=== PATIENT | female | born 1955 | race Caucasian/White ===

== ENCOUNTER 2018-05-28 08:56 | Outpatient (REF) | payer BC, SELFPAY ==
[2018-05-28 12:42] LABS: HCT 40.4 % (36.0-46.0); HGB 12.8 g/dL (12.0-15.5); Mean Corp. HGB Concentration 31.7 g/dL (32.0-36.0); Mean Corpuscular Hemoglobin 27.1 pg (27.0-33.0); Mean Corpuscular Volume 85.4 fL (80-95); Platelet Count 201 x1000/uL (130-400); RBC 4.73 m/cumm (4.00-5.20); RBC Distribution Width 16.9 % (11.7-14.6); White Blood Cell Count 3.62 k/cumm (4.4-10.8)
[2018-05-28 12:53] LABS: ALT 41 U/L (12-78); AST 34 U/L (15-37); Albumin 3.7 g/dL (3.4-5.0); Alkaline Phosphatase 82 U/L (46-116); Anion Gap 8.3 mmol/L (3-11); BUN 12 mg/dL (7-18); Bilirubin, Total 0.4 mg/dL (0.2-1.0); CO2 28.7 mmol/L (21.0-32.0); CREATININE 1.06 mg/dL (0.55-1.02); Calcium 8.9 mg/dL (8.5-10.1); Chloride 106 mmol/L (98-107); Cholesterol 177 mg/dL (50-200); Estimated GFR 52.36 (mL/min/1.73m2); Glucose 114 mg/dL (70-100); HDL Cholesterol 64 mg/dL (40-60); LDL CHOLESTEROL 103 mg/dL (<100); Potassium 4.2 mmol/L (3.5-5.1); Sodium 143 mmol/L (136-145); Triglyceride 77 mg/dL (30-150)
== END 2018-05-28 09:16 ==
LOC: NCHCN 08:56
PROVIDERS: Visit Provider Family Medicine
DX: Z00.00 Encounter for general adult medical examination without abnormal findings (principal); Z13.0 Encounter for screening for diseases of the blood and blood-forming organs and certain disorders involving the immune mechanism; Z13.228 Encounter for screening for other metabolic disorders; Z13.220 Encounter for screening for lipoid disorders
CPT/HCPCS: 80053; 80061; 83721; 85027

== ENCOUNTER 2018-06-10 00:20 | Outpatient (CLI) | payer BC, SELFPAY ==
--- NOTE | 2018-06-10 12:01 | DI.MAMMO_ITS ---
SYMPTOM/DIAGNOSIS: SCREENING, Z12.31 MAMMOGRAMS: Mammograms were interpreted according to the usual protocol including computer analysis with CAD system, tomosynthesis and C view imaging. Comparison with prior examinations. Breast density A. No masses or microcalcifications are seen. There is nothing to suggest malignancy. IMPRESSION: Negative mammogram. Routine screening is recommended. Category I. MQSA ASSESSMENT OF FINDINGS: Negative. Category 1. Patient will receive a letter notifying them of these results. BI-RAD category A. The breasts are almost entirely fatty.
== END 2018-06-10 00:40 ==
PROVIDERS: PCP Family Medicine; Visit Provider Family Medicine
DX: Z12.31 Encounter for screening mammogram for malignant neoplasm of breast (principal)
CPT/HCPCS: 77063; 77067

== ENCOUNTER 2018-12-03 16:02 | Outpatient (REF) | payer BC, SELFPAY ==
[2018-12-04 06:32] LABS: CREATININE 1.09 mg/dL (0.55-1.02)
== END 2018-12-03 16:22 ==
LOC: NCHCN 16:02
PROVIDERS: PCP Family Medicine; Visit Provider Family Medicine
DX: F45.8 Other somatoform disorders (principal)
CPT/HCPCS: 82565

== ENCOUNTER 2018-12-05 00:42 | Outpatient (CLI) | payer BC, SELFPAY ==
--- NOTE | 2018-12-05 08:16 | DI.CT_ITS ---
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 No mass is identified. The salivary glands as visualized are intact. The base of the tongue, valleculae and aryepiglottic folds and larynx appear unremarkable. There is no evidence of a retropharyngeal abnormality. The larynx is intact. No vascular abnormality is identified in the neck. There is no evidence of lymphadenopathy. The thyroid gland is intact. Note is made of degenerative changes involving the cervical spine. SUMMARY: No evidence of a mass or lymphadenopathy. The soft tissues appear unremarkable. If there is any further clinical question regarding the status of this patient, then correlation with a barium swallow is suggested.
[2018-12-05] MEDS: Omnipaque 350 MG/ML 100 ML BTL IJ (08:47)
[2018-12-05] MEDS: Normal Saline Flush 10 ML SYR IVP (08:48)
== END 2018-12-05 01:02 ==
PROVIDERS: PCP Family Medicine; Visit Provider Family Medicine
DX: F45.8 Other somatoform disorders (principal); H92.09 Otalgia, unspecified ear; M47.22 Other spondylosis with radiculopathy, cervical region; K14.8 Other diseases of tongue
CPT/HCPCS: 70491; 87491; 87591; J3490

== ENCOUNTER 2019-07-03 02:12 | Outpatient (CLI) | payer BC, SELFPAY ==
[2019-07-03 09:38] LABS: ALT 35 U/L (14-59); AST 22 U/L (15-37); Albumin 3.6 g/dL (3.4-5.0); Alkaline Phosphatase 73 U/L (46-116); Anion Gap 5.4 mmol/L (3-11); BUN 19 mg/dL (7-18); Bilirubin, Total 0.4 mg/dL (0.2-1.0); CO2 30.6 mmol/L (21.0-32.0); Calcium 9.3 mg/dL (8.5-10.1); Calculated LDL 105 mg/dL; Chloride 107 mmol/L (98-107); Cholesterol 185 mg/dL (50-200); Estimated GFR 50.01 (mL/min/1.73m2); Glucose 110 mg/dL (70-100); HDL Cholesterol 68 mg/dL (40-60); Potassium 4.3 mmol/L (3.5-5.1); Sodium 143 mmol/L (136-145); Total Protein 6.8 g/dL (6.4-8.2); Triglyceride 60 mg/dL (30-150)
== END 2019-07-03 02:32 ==
PROVIDERS: PCP Family Medicine; Visit Provider Family Medicine
DX: R73.9 Hyperglycemia, unspecified (principal); I10 Essential (primary) hypertension; Z00.00 Encounter for general adult medical examination without abnormal findings; Z13.220 Encounter for screening for lipoid disorders
CPT/HCPCS: 36415; 80053; 80061

== ENCOUNTER 2019-07-14 16:44 | Outpatient (REF) | payer BC, SELFPAY ==
--- NOTE | 2019-07-14 16:15 | PAPFT_PTH ---
PATIENT: Benita Arreaga LOC: [facility] U#:[id number] AGE/SX: 64/F ROOM: RE07/14/[address]: Melanie Carrington : 1955 BED: DIS: 07/14/2019 SPEC #: [id number] RECD: 07/15/19 12:40 STATUS: NOEMI REQ #: [id number] DAVID: 07/14/19 16:[address]: Melanie Carrington DEPT: [facility] Cytology RECD BY: Peggy Ramirez Tissues: 1 - CX/ENDOCX FOR PAP SMEARS Procedures: PAP THIN PREP/UVM Screening HPV DNA PROBE Comments: [id number]
== END 2019-07-14 17:04 ==
LOC: NCHCN 16:44
PROVIDERS: PCP Family Medicine; Visit Provider Family Medicine
DX: Z12.4 Encounter for screening for malignant neoplasm of cervix (principal); Z00.00 Encounter for general adult medical examination without abnormal findings; Z01.419 Encounter for gynecological examination (general) (routine) without abnormal findings
CPT/HCPCS: 88142; 87624

== ENCOUNTER 2019-08-13 01:20 | Outpatient (CLI) | payer BC, SELFPAY ==
--- NOTE | 2019-08-13 16:19 | DI.MAMMO_ITS ---
EXAM: MG MAMMO SCREENING CLINICAL HISTORY: SCREENING Z12.31. TECHNIQUE: Full field digital CC and MLO mammographic images were obtained with 3D tomosynthesis and utilizing computer aided detection (CAD). COMPARISON: . 2009 through 2017 FINDINGS: Breast Density - Category A - Almost entirely fatty Masses/Architectural Distortion: None seen. Microcalcifications: No suspicious pleomorphic-type calcifications are seen. Skin Thickening/Nipple Retraction: None. Axilla: Unremarkable. IMPRESSION: 1. BI-RADS category 1, negative. No significant interval change with no specific features of maligna ncy noted. 2. Unless there is more urgent need, screening mammography is recommended, as per [place] [employer] guidelines. A negative radiographic report should not delay biopsy if a dominant or clinically suspicious mass is present. Up to ten percent of cancers are not identified on mammography. A negative report may reinforce clinical impression. Adenosis and dense breasts may obscure an underlying neoplasm. False positive reports average 6 to 10%. Patient will receive a letter notifying them of these results.
== END 2019-08-13 01:40 ==
PROVIDERS: PCP Family Medicine; Visit Provider Family Medicine
DX: Z12.31 Encounter for screening mammogram for malignant neoplasm of breast (principal)
CPT/HCPCS: 77063; 77067

== ENCOUNTER 2020-03-30 07:23 | Outpatient (CLI) | payer BC, SELFPAY ==
[2020-04-01 23:57] LABS: COVID-19 RT-PCR Result NEGATIVE (Negative)
== END 2020-03-30 07:43 ==
PROVIDERS: PCP Family Medicine; Visit Provider Internal Medicine Gastroenterology
DX: Z11.59 Encounter for screening for other viral diseases (principal)
CPT/HCPCS: U0003

== ENCOUNTER 2020-08-02 16:22 | Outpatient (REF) | payer BC, SELFPAY ==
[2020-08-04 16:51] LABS: Patient Race White; SARS-CoV-2 RNA Undetected (Undetected); SARS-CoV-2 Specimen Source Nasal
== END 2020-08-02 16:42 ==
LOC: NCHCN 16:22
PROVIDERS: PCP Family Medicine; Visit Provider Family Medicine
DX: Z20.828 Contact with and (suspected) exposure to other viral communicable diseases (principal)
CPT/HCPCS: U0003

== ENCOUNTER 2020-08-23 00:21 | Outpatient (CLI) | payer BC, SELFPAY ==
--- NOTE | 2020-08-23 16:17 | DI.MAMMO_ITS ---
EXAM: MG MAMMO SCREENING CLINICAL HISTORY: SCREENING,Z12.31 TECHNIQUE: Bilateral full field digital CC and MLO mammographic images were obtained with 3D tomosyn thesis and utilizing computer aided detection (CAD). COMPARISON: Available for comparison. FINDINGS: Masses/Architectural Distortion: None seen. Microcalcifications: No suspicious pleomorphic-type are seen. Skin Thickening/Nipple Retraction: None. IMPRESSION: 1. No significant interval change with no specific features of malignancy noted. 2. Unless there is more urgent need, screening mammography is recommended, as per [employer] [employer] guidelines. BI-RADS Category 1 - Negative Breast Density - Category A - Almost entirely fatty Breast density category C or D implies that the patient has dense breast tissue. Dense breast tissue is very common and is not abnormal but dense breast tissue can make it harder to find cancer on a ma mmogram. Also, dense breast tissue may increase their breast cancer risk. This information about the result of the mammogram report was provided to the patient to raise their awareness. Use this report when you speak with the patient about their risks for breast cancer, which includes their family hist ory. At that time, you may recommend for more screening tests (Ultrasound or MRI) as they might be us eful based on their risk. A negative radiographic report should not delay biopsy if a dominant or clinically suspicious mass is present. Up to ten percent of cancers are not identified on mammography. A negative report may reinforce clinical impression. Adenosis and dense breasts may obscure an underlying neoplasm. False positive reports average 6 to 10%. Patient will receive a letter notifying them of these results.
== END 2020-08-23 00:41 ==
PROVIDERS: PCP Family Medicine; Visit Provider Family Medicine
DX: Z12.31 Encounter for screening mammogram for malignant neoplasm of breast (principal)
CPT/HCPCS: 77063; 77067

== ENCOUNTER 2020-11-09 13:17 | Outpatient (CLI) | payer BC, SELFPAY ==
[2020-11-09 15:34] LABS: HCT 40.9 % (36.0-46.0); HGB 13.1 g/dL (11.2-15.7); MCH 29.6 pg (27.0-33.0); MCV 92.5 fL (80-95); MPV 11.2 fL (8.0-11.0); Platelet Count 210 10^3/uL (130-400); RBC 4.42 10^6/uL (3.93-5.22); RDW 13.2 % (11.7-14.6); RDW-SD 45.1 fL; WBC 4.91 10^3/uL (4.4-10.8)
[2020-11-09 16:49] LABS: Iron 65 ug/dL (50-170)
[2020-11-09 17:11] LABS: ALT 31 U/L (14-59); AST 21 U/L (15-37); Albumin 3.7 g/dL (3.4-5.0); Alkaline Phosphatase 77 U/L (46-116); Bilirubin, Total 0.3 mg/dL (0.2-1.0); CREATININE 0.9 mg/dL (0.55-1.02); Ferritin 21 ng/mL (8-252); TSH 1.57 uIU/mL (0.36-3.74); Total Protein 6.8 g/dL (6.4-8.2); Vitamin B12 552 pg/mL (193-986)
[2020-11-09 17:55] LABS: Bilirubin, Direct 0.1 mg/dL (0.0-0.2)
[2020-11-11 04:51] LABS: Vitamin D 25 Total 53.7 ng/ml (30-100)
== END 2020-11-09 13:18 | disposition home or self-care (01) ==
LOC: LBO 13:20
PROVIDERS: PCP Family Medicine; Visit Provider Physician Assistant
DX: E66.01 Morbid (severe) obesity due to excess calories (principal); Z68.39 Body mass index [BMI] 39.0-39.9, adult
CPT/HCPCS: 36415; 80076; 82306; 85027; 82565; 82607; 82728; 83540; 84443

== ENCOUNTER 2021-02-18 02:30 | Outpatient (CLI) | payer BC, SELFPAY ==
[2021-02-18 12:19] LABS: Source Nasal/Nares
[2021-02-18 15:24] LABS: COVID-19 PCR Negative (Negative)
== END 2021-02-18 02:31 | disposition home or self-care (01) ==
LOC: LBO 02:30
PROVIDERS: PCP Family Medicine; Visit Provider Surgery
DX: Z20.822 Contact with and (suspected) exposure to COVID-19 (principal); Z01.818 Encounter for other preprocedural examination
CPT/HCPCS: 87635

== ENCOUNTER 2021-05-20 01:27 | Outpatient (CLI) | payer BC, SELFPAY ==
[2021-05-20 07:31] LABS: HCT 39.9 % (36.0-46.0); HGB 12.7 g/dL (11.2-15.7); MCH 29.5 pg (27.0-33.0); MCHC 31.8 % (32.0-36.0); MCV 92.8 fL (80-95); MPV 11.1 fL (8.0-11.0); Platelet Count 174 10^3/uL (130-400); RDW-SD 44.3 fL; WBC 4.05 10^3/uL (4.4-10.8)
[2021-05-20 09:26] LABS: Iron 93 ug/dL (50-170)
[2021-05-20 09:54] LABS: CREATININE 1.1 mg/dL (0.55-1.02); Calcium 9.4 mg/dL (8.5-10.1); Estimated GFR 49.69 (mL/min/1.73m2); Ferritin 24 ng/mL (8-252); Vitamin B12 618 pg/mL (193-986)
[2021-05-23 02:39] LABS: Vitamin D 25 Total 48.5 ng/mL (30-100)
[2021-05-23 09:11] LABS: Parathyroid Hormone,Intact 29 pg/mL (19-88)
[2021-05-24 18:56] LABS: Thiamine (Vitamin B1), WB 199 nmol/L (70-180)
== END 2021-05-20 01:28 | disposition home or self-care (01) ==
LOC: LBO 01:29
PROVIDERS: PCP Family Medicine; Visit Provider Surgery
DX: K91.2 Postsurgical malabsorption, not elsewhere classified (principal); Z98.84 Bariatric surgery status
CPT/HCPCS: 36415; 82306; 85027; 82310; 82565; 82607; 82728; 83540; 83970; 84425

== ENCOUNTER → 2022-01-26 02:03 | Outpatient (CLI) | payer BC, SELFPAY ==
--- NOTE | 2022-01-26 15:00 | DI.DEXA_ITS ---
Exam(s) XR DEXA BONE DENSITY W/WO MÓNICA EXAM: XR DEXA BONE DENSITY W/WO MÓNICA CLINICAL HISTORY: MENOPAUSE, Z78.0 TECHNIQUE: COMPARISON: No exams were available for comparison FINDINGS: Lateral Spine Image: Unremarkable. No compression deformities identified. Left hip: Total T-Score: -0.3 Total Z-Score: 1.0 T- and Z-scores: Overall, this is within normal limits. Lumbar Spine: Total T-Score: -1.0 Total Z-Score: 0.9 T- and Z-scores: Within normal limits. IMPRESSION: No evidence of osteoporosis.
--- NOTE | 2022-01-26 15:30 | DI.MAMMO_ITS ---
Exam(s) MAMMO SCREENING EXAM: MAMMO SCREENING CLINICAL HISTORY: SCREENING, Z12.31 TECHNIQUE: Bilateral full field digital CC and MLO mammographic images were obtained with 3D tomosyn thesis and utilizing computer aided detection (CAD). COMPARISON: Available for comparison. FINDINGS: Masses/Architectural Distortion: None seen. Microcalcifications: No suspicious pleomorphic-type are seen. Skin Thickening/Nipple Retraction: None. IMPRESSION: 1. No significant interval change with no specific features of malignancy noted. 2. Unless there is more urgent need, screening mammography is recommended, as per [place] [employer] guidelines. BI-RADS Category 1 - Negative Breast Density - Category B - Scattered areas of fibroglandular density Breast density category C or D implies that the patient has dense breast tissue. Dense breast tissue is very common and is not abnormal but dense breast tissue can make it harder to find cancer on a ma mmogram. Also, dense breast tissue may increase their breast cancer risk. This information about the result of the mammogram report was provided to the patient to raise their awareness. Use this report when you speak with the patient about their risks for breast cancer, which includes their family hist ory. At that time, you may recommend for more screening tests (Ultrasound or MRI) as they might be us eful based on their risk. A negative radiographic report should not delay biopsy if a dominant or clinically suspicious mass is present. Up to ten percent of cancers are not identified on mammography. A negative report may reinforce clinical impression. Adenosis and dense breasts may obscure an underlying neoplasm. False positive reports average 6 to 10%. Patient will receive a letter notifying them of these results.
== END ==
PROVIDERS: PCP Family Medicine; Visit Provider Family Medicine
DX: Z12.31 Encounter for screening mammogram for malignant neoplasm of breast (principal); Z13.820 Encounter for screening for osteoporosis; Z78.0 Asymptomatic menopausal state
CPT/HCPCS: 77063; 77067; 77080

== ENCOUNTER → 2022-11-27 14:28 | Outpatient (BNVA) | payer MEDICARE, SELFPAY | PROVIDERS: PCP Family Medicine; Referring Provider Family Medicine; Visit Provider Student in an Organized Health Care Education/Training Program | DX: M65.342 Trigger finger, left ring finger (principal) | CPT/HCPCS: 99202 ==

== ENCOUNTER 2023-01-03 11:56 | Day surgery (SDC) | payer MEDICARE, SELFPAY ==
--- NOTE | 2023-01-03 11:57 | W.PM.DSUDISC ---
Date of service: 01/03/23 Time of Service: 11:57 Discharge Plan Disposition Condition: Good Discharge Details Reason For Visit: LRF Trigger Release Attending Provider: Abdiel Wilson Primary Care Provider: Melanie Carrington Home Meds and New Rx's Prescriptions: New acetaminophen 500 mg tablet 1,000 mg PO TID Qty: 90 0RF ibuprofen 600 mg tablet 600 mg PO TID PRN (Reason: pain) Qty: 90 0RF Continued fluticasone propionate 16 GM spray,suspension 50 mcg NS PRN citalopram 20 mg tablet 30 mg PO DAILY omeprazole 40 mg capsule,delayed release(DR/EC) 40 mg PO DAILY cyanocobalamin (vitamin B-12) 1,000 mcg capsule 1,000 mcg PO DAILY multivitamin [Once Daily] 1 EACH tablet 1 ea PO DAILY Acidophilus 1 EACH tablet,chewable 1 ea PO DAILY cholecalciferol (vitamin D3) 1,000 UNIT tablet 1 tab PO DAILY biotin [Hard Nails] 2,500 MCG capsule 7,500 mcg PO DAILY omega 4-gga-aog-fish oil 1 EACH capsule 1 ea PO DAILY Discharge Instructions Stand Alone Forms: Katie Patel Finger Release Referrals: Abdiel Wilson MD [ [facility] STAFF PHYSICIAN] - Activity:: Activity as Tolerated Remove Dressings/Wound Care:: 48 hours Shower/Bathe:: 48 hours Activity:: Activity as Tolerated Diet:: As Tolerated DS: Diagnosis Discharge Diagnosis (1) Trigger finger, left ring finger: Status: Acute
[2023-01-03 12:29] VITALS: BP 133/83; PULSE 69; RESP 15; TEMP 36.5; O2SAT 99
[2023-01-03] MEDS: Lidocaine 1% Pres-Free W/EPI 1/200,000 10 ML VIAL (13:43)
[2023-01-03] MEDS: Sodium Bicarbonate 50 MEQ/50 ML VIAL (13:43)
[2023-01-03 14:02] VITALS: BP 144/79; PULSE 65; RESP 16; TEMP 36.6; O2SAT 100
--- NOTE | 2023-01-03 14:08 | W.PM.OP ---
Date of service: 01/03/23 Time of Service: 14:00 Operative Note Operative Note DATE OF PROCEDURE: 01/03/23 PRE-OP DIAGNOSIS: Left Ring Finger Trigger Finger POST-OP DIAGNOSIS: same PROCEDURE: Trigger Finger Release - Left Ring Finger SURGEON: Abdiel Wilson ANESTHESIA TYPE: Local By Surgeon Refer to Anesthesia Record ESTIMATED BLOOD LOSS: 0 PATHOLOGY: none sent COMPLICATIONS: None Patient was transported to: same day Patient's condition: stable Indications: I have seen Benita Spencer in clinic for symptoms of a trigger finger. The catching, clicking, locking, and pain limited function. The diagnosis of trigger finger was evident. The symptoms had not responded to conservative measures. I discussed trigger finger release with the patient. I reviewed the risks of the procedure to include, but not limited to, bleeding, infection, pain, stiffness, incomplete release, damage to nerves or vessels, continued catching, recurrence. Despite these risks, the patient elected to proceed. Findings: There was a tightened A1 jillian which was released. The flexor tendons were inspected and the patient was able to move the finger without any catching, clicking, or locking. Procedure Description: Benita Spencer was greeted in the preoperative holding area where the correct side was identified and marked. The consent was reviewed with the patient and signed. All questions were answered. She was taken back to the operating room. The patient was placed into the supine position on the operating room table with the left arm on an arm board. All bony prominences were well padded. No prophylactic antibiotics were administered since this was a clean, elective hand surgical case. The left arm was then prepped with Chloraprep and draped in a standard fashion with stockinette and extremity drape. A timeout to confirm correct identity, side and site, procedure, allergies, anesthesia, and medical concerns was performed. The surgical site was marked as a longitudinal incision directly over the A1 jillian of the involved digit. This was confirmed with palpation during finger flexion. This area, overlying the metacarpal head, was then anesthetized with 1% Lidocaine. The patient tolerated this well and once the anesthetic had setup, the procedure began. A longitudinal incision was made through skin only, approximately 1cm. The deep tissues were dissected bluntly. Once the A1 jillian and flexor tendons were identified the soft tissue including neurovascular structures were retracted medially and laterally. There were no crossing structures over the A1 jillian. The proximal edge of the jillian was identified and the jillian was incised with tenotomy scissors. There was a release of the tendons once this was fully released. The tendons were then removed from the wound and inspected. The tendons were then returned and the patient was asked to move the finger into deep flexion and back to extension. There was no recreation of the pre-operative symptoms. The hand was then once more inspected for any A0 jillian or area of possible constriction. The wound was then irrigated and the skin was closed with a 4-0 Nylon. This was dressed with gauze and a Conform dressing. The patient tolerated the procedure well and was returned to the Same Day Surgery area in a stable condition suffering no known complication.
== END 2023-01-03 14:35 | disposition home or self-care (01) ==
PROVIDERS: PCP Family Medicine; Visit Provider Student in an Organized Health Care Education/Training Program
PROC: (CPT 26055; principal; 2023-01-03 15:00)
DX: M65.342 Trigger finger, left ring finger (principal)
CPT/HCPCS: 26055

== ENCOUNTER → 2023-01-11 14:31 | Outpatient (BNVA) | payer MEDICARE, SELFPAY | PROVIDERS: PCP Family Medicine; Referring Provider Family Medicine; Visit Provider Physician Assistant | DX: Z47.89 Encounter for other orthopedic aftercare (principal); M65.342 Trigger finger, left ring finger ==

== ENCOUNTER → 2023-02-20 10:30 | Outpatient (BNVA) | payer MEDICARE, SELFPAY | PROVIDERS: PCP Family Medicine; Referring Provider Family Medicine; Visit Provider Surgery | DX: K22.70 Barrett's esophagus without dysplasia (principal) | CPT/HCPCS: 99202; 99213 ==

== ENCOUNTER 2023-02-28 07:50 | Day surgery (SDC) | payer MEDICARE, SELFPAY ==
--- NOTE | 2023-02-28 06:34 | W.PM.PROGNOT ---
Date of Service Date of service: 02/28/23 Time of Service: 08:41 Assessment and Plan Assessment and plan (1) Barretts esophagus: Assessment and plan: Mindi Spencer is here to discuss another upper endoscopy.? We went over the pathophysiology of reflux again.? We reviewed lifestyle changes like weight loss which she is starting to work on again, not eating within 2 hours of going to bed and small healthy meals throughout the day instead of 2-3 big meals a day.? I reviewed the risks, benefits and complications of the procedure.? Complications include but are not to bleeding, infection, aspiration, injury to the esophagus stomach or duodenum necessitating further surgery and hospitalization.? Injury to the uvula with development of a severe sore throat.? Patient's questions were entertained and answered to her satisfaction.? She had a good understanding of the risks and complications and wished to proceed.? No guarantees were given or implied. (2) GERD (gastroesophageal reflux disease): Subjective Subjective Interval history since last seen: I saw Mindi Spencer in same-day surgery today prior to her procedure. She does not have any concerns or new symptoms. She has not had any new heart rate issues chest pain or shortness of breath. She did go to dermatology yesterday and had all a bunch of lesions frozen. One of the scabs came off this morning and is a little raw area next to her nose on the left side. Will place a small Band-Aid on that so that does not get rubbed with the oxygen tubing. No other concerns or issues this morning. Exam Const General: comfortable and no acute distress Nutritional Appearance: overweight Orientation: alert and oriented x3 HENMT Head: normocephalic and atraumatic Resp Effort & Inspection: normal respiratory effort Auscultation: clear to auscultation bilaterally Time Spent with Patient Time Spent with Patient: <25 minutes Time was spent: counseling the patient
--- NOTE | 2023-02-28 06:35 | W.PM.ENDDOP ---
Date of service: 02/28/23 Time of Service: 09:18 Endoscopy Report DATE OF PROCEDURE: 02/28/23 PRE-OP DIAGNOSIS: Hx of Roman's. GERD POST-OP DIAGNOSIS: same PROCEDURE: EGD with biopsies SURGEON: Lauren Mckeon ANESTHESIA TYPE: General:No Airway ESTIMATED BLOOD LOSS: 3 PATHOLOGY: other (Bx of GE junction) COMPLICATIONS: None DISPOSITION: same day INDICATIONS: Mindi Specner is here to discuss another upper endoscopy.? We went over the pathophysiology of reflux.? We reviewed lifestyle changes like weight loss which she is starting to work on again, not eating within 2 hours of going to bed and small healthy meals throughout the day instead of 2-3 big meals a day.? I reviewed the risks, benefits and complications of the procedure.? Complications include but are not to bleeding, infection, aspiration, injury to the esophagus stomach or duodenum necessitating further surgery and hospitalization.? Injury to the uvula with development of a severe sore throat.? Patient's questions were entertained and answered to her satisfaction.? She had a good understanding of the risks and complications and wished to proceed.? No guarantees were given or implied. FINDINGS: mild gastric inflammation benign fundic gland polyps mild inflammation at the GE junction PROCEDURE DESCRIPTION: After informed consent was obtained the patient was take to the procedure room and placed in a supine position. Monitors were applied and a time out was done. The patients name, date of , procedure type, allergies to medications and metal in their body was reviewed. A bite block was placed and the patient was sedated. Once sedated and comfortable the gastroscope was advanced through the oropharynx which was grossly normal into the esophagus. The proximal and mid-esophagus were normal. In the distal esophagus there was mild inflammation noted. The scope was advanced into the stomach and through the pylorus into the 3rd portion of the duodenum. The duodenum was noted to be normal. The scope was retracted back into the stomach. There was some mild inflammation and some benign fundic gland polyps. There were no ulcers. There was a small 3 cm sliding hiatal hernia noted. The scope was retracted back into the esophagus and biopsies were done of the GE junction to rule out Roman's. The Z line was regular. The GE junction was at 35 cm. The scope was removed and the patient was woken up and taken back to [facility] in stable condition. Follow up: as needed. Continue with the current antacid
--- NOTE | 2023-02-28 06:36 | PDOC.DSDIS_ITS ---
Date of service: 02/28/23 Time of Service: 10:01 Discharge Plan Disposition Patient Disposition: Home Condition: Stable Discharge Details Reason For Visit: EGD Attending Provider: Lauren Mckeon Primary Care Provider: Melanie Carrington Home Meds and New Rx's Prescriptions: Continued calcium carbonate 260 mg calcium (650 mg) tablet,chewable 260 mg PO DAILY fluticasone propionate 16 GM spray,suspension 50 mcg NS PRN citalopram 20 mg tablet 30 mg PO DAILY omeprazole 40 mg capsule,delayed release(DR/EC) 40 mg PO HS cyanocobalamin (vitamin B-12) 1,000 mcg capsule 1,000 mcg PO DAILY multivitamin [Once Daily] 1 EACH tablet 1 ea PO DAILY ibuprofen 200 mg tablet 400 mg PO DIRECTED PRN Discharge Instructions Instructions: Hiatal Hernia (DC), Gastric Polyps (DC) Additional Instructions: Findings: mild inflammation of the stomach a few benign polyps in the stomach mild inflammation at the junction of the esophagus and stomach Follow up: depends on pathology results Medications: please continue on Omeprazole 40 mg daily Please call if you develop: fevers >101.5 Nausea or Vomiting Abdominal pain that is not transient Rectal bleeding that is more then a tbsp A hard abdomen and inability to pass gas DAY SURGERY UNIT POST ENDOSCOPY INSTRUCTIONS Instructions for everyone who is given Anesthesia: For your safety, please do the following for the next 24 Hours: a. Do not drive or operate dangerous equipment b. Do not drink alcohol beverages or use any recreational drugs for the first 24 hours or while taking pain medications. The medications in your body may have a reaction that can be dangerous. c. Do not make any important decisions or sign any important papers 1. Generally there are no restrictions on your activity after a day or so has gone by, but you may feel a bit fatigued for a few days. 2. After you arrive home you may have a light meal and return to a normal diet as you can tolerate it without feeling sick to your stomach. 3. After surgery, you may feel pain or discomfort. This should be only transient, but if it persists please contact your doctor. 4. If there are any questions regarding the findings of your procedure, please feel free to contact your doctor. 6. If you are unable to contact your doctor with a problem, contact the hospital at [phone]. 7. Continue all your regular medications unless directed otherwise. I understand the above instructions and have no questions. Signature of Patient or Responsible Adult Escort Date/Time Name of Responsible Adult Escort Signature of Nurse Date/Time Activity:: Activity as Tolerated Diet:: As Tolerated Discharge Orders Discharge Orders: Discharge Order (Routine); Ordered 02/28/23 Ordered By: Lauren Mckeon DS: Diagnosis Discharge Diagnosis (1) Barretts esophagus: Asessment and Plan: Patient is seen and examined after their endoscopy. Patient does not have a sore throat. They have been able to tolerate liquids. They do not have any Nausea or Vomiting. They are not having any chest pain or shortness of breath. They have been able to pass gas and are not having any abdominal pain or distention. they have not vomited any blood. The vital signs have been stable- see nursing notes. We discussed findings on their endoscopy We reviewed the importance of lifestyle modifications- see diet recommendations We reviewed any new medications that the patient may be prescribed- see medicine reconciliation. Patient will either be sent a letter with the biopsy results or follow up in the office- see discharge instructions Patient was given explicit instructions for emergency follow up post endoscopy- see discharge instructions Patient verbalized understanding and was discharged in stable and satisfactory condition. See nursing notes. (2) GERD (gastroesophageal reflux disease):
[2023-02-28 08:29] VITALS: BP 123/78; PULSE 65; RESP 18; TEMP 36.4; O2SAT 97
--- NOTE | 2023-02-28 08:39 | ANES.PREOP_ITS ---
General Info Date of Service Date Performed: 02/28/23 Height: 5 ft 2 in Weight: 95.3 kg Body Mass Index (BMI): 38.4 Surgical Procedure: Operation Date: 02/28/23 09:20 Proposed Procedure Side Surgeon p Gastroscopy Lauren Mckeon MD Actual Procedure Side Surgeon p Gastroscopy with biopsies Not Applicable Lauren Mckeon MD Pre-Op Diagnosis Post-Op Diagnosis EGD Meds Allergies and Home Medications Allergies Allergy/AdvReac Type Severity Reaction Status Date / Time amoxicillin Allergy Intermediate ears Unverified 02/28/23 08:19 closed up and trouble breathing codeine AdvReac Intermediate Migraine Unverified 02/28/23 08:19 Home Medication Medication Instructions Recorded fluticasone propionate 50 50 mcg NS PRN 06/14/16 mcg/actuation nasal spray,suspension multivitamin (Once Daily tablet) 1 ea PO DAILY 09/27/16 citalopram 20 mg tablet 30 mg PO DAILY 10/03/22 omeprazole 40 mg capsule,delayed 40 mg PO HS 10/03/22 release cyanocobalamin (vitamin B-12) 1,000 mcg PO DAILY 12/21/22 1,000 mcg capsule calcium carbonate 260 mg calcium 260 mg PO DAILY 02/20/23 (650 mg) chewable tablet ibuprofen 200 mg tablet 400 mg PO DIRECTED PRN 02/20/23 Current Visit Medications: Current Medications Generic Name Dose Route Start Last Admin Trade Name Freq PRN Reason Stop Dose Admin Ringer's Solution 1,000 mls @ 80 mls/hr 02/28/23 06:00 IV 03/29/23 23:59 INFUSION [facility] IV Miscellaneous Supplies 1 each 02/28/23 06:00 Iv Access IV 03/29/23 23:59 DIRECTED KASSIDY Ondansetron HCl 4 mg 02/28/23 06:37 Ondansetron 4 Mg/2 Ml Vial IVP 03/30/23 06:36 Q4H PRN PRN Nausea / Vomiting Sodium Chloride 0 ml 02/28/23 06:00 Normal Saline Flush 10 Ml Syr IV 03/29/23 23:59 PRN PRN Sodium Chloride 0 ml 02/28/23 06:00 Normal Saline 10 Ml Vial IJ 03/29/23 23:59 DIRECTED PRN Sterile Water 0 ml 02/28/23 06:00 Water,Injection,Sterile 10 Ml Vial IJ 03/29/23 23:59 DIRECTED PRN PFSH Active Problems Active Problems: Problem Status Onset Code Hypertension I10 Prediabetes R73.03 ABIGAIL (obstructive sleep apnea) G47.33 Stress due to illness of family member Z63.79 Medical History Medical History (Updated 02/28/23 @ 08:26 by Marisol Peña) Barretts esophagus Dysthymia GERD (gastroesophageal reflux disease) Hiatal hernia History of smoking IBS (irritable bowel syndrome) Obesity Seborrheic keratosis Medical History Comments:: PONV, 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 Surgical History Surgical History section 1982 History of esophagogastroduodenoscopy (EGD) (~04/02/20) Per referral done at [facility] History of fasciotomy L palm Hx of colonoscopy Hx of dilation and curettage S/P laparoscopic sleeve gastrectomy Trigger finger, left ring finger S/P Release: 01/03/2023 Tobacco Smoking/Tobacco Use Status: Former Tobacco Use Alcohol Alcohol Intake: current Alcohol intake frequency: a few times a week Alcohol type: hard liquor Substance Use Substance use: Never Substance use type: does not use Details: alcohol: t-5, one drink Vital Signs and Lab Results Vital Signs Most Recent Vital Signs in EMR: Most Recent Vital Signs Temp Pulse Resp BP Pulse Ox 36.4 C L 65 18 123/78 97 02/28/23 08:29 02/28/23 08:29 02/28/23 08:29 02/28/23 08:29 02/28/23 08:29 Lab Results Blood Type / Crossmatch: No Data to Display Complete Blood Count: No Data to Display Complete Metabolic Panel: No Data to Display Liver Function Panel: No Data to Display Coagulation Panel: No Data to Display Cardiac Panel: No Data to Display Arterial Blood Gas: No Data to Display Venous Blood Gas: No Data to Display Pancreas Panel: No Data to Display Thyroid Panel: No Data to Display Infectious Disease: No Data to Display Blood Cultures: No Data to Display Toxicology Panel: No Data to Display Anesthesia Assessment and Plan Anesthesia History Personal History: No History of Anesthesia Complications Family History: No Family History of Anesthesia Complications Exercise Tolerance Exercise Tolerance: Metabolic Equivalents>4 Pertinent Negatives Pertinent Negatives: No Major Cardiovascular Symptoms or Complaints and No Major Pulmonary Symptoms or Complaints Cardiac & Pulmonary Exam Cardiac Exam: Normal S1/S2 Heart Sounds Pulmonary Exam: Clear Bilateral Breath Sounds Implantable Cardiac Device Does patient have a Pacemaker or an ICD?: No Airway Exam Known Difficult Airway: No Mallampati Class: 2 Mouth Opening: Normal (> 3cm) Thyromental Distance: Greater than 3 cm Neck Range of Motion: Full ROM Neck Circumference: Normal Teeth Condition: Normal Dentition ASA Classification ASA Score: ASA 2 Emergency Case?: No NPO Status NPO Status: NPO Clears >2 hours, Solids >8 hours Anesthesia Plan Resuscitation Status: Full Code Anesthesia Technique: General Anesthesia Airway Planned: Natural Airway Monitors Used: Standard Monitors
[2023-02-28 08:41] VITALS: BMI 38.4
[2023-02-28] MEDS: Lactated Ringers 1,000 ML 80 ML IV (08:49)
--- NOTE | 2023-02-28 09:08 | ESO_PTH ---
PATIENT: Benita Arreaga LOC: [facility] U#:[id number] AGE/SX: 68/F ROOM: RE02/28/[address]: Lauren Mckeon MD : 1955 BED: DIS: 02/28/2023 SPEC #: [id number] RECD: 02/28/23 12:32 STATUS: NOEMI MCKEON #: [id number] DAVID: 02/28/23 09:[address]: Lauren Mckeon DEPT: Surgical Specimen RECD BY: Peggy Ramirez ENTERED: 02/28/23 12:34 SP TYPE: Eso OT DR: Melanie Carrington Tissues: 1 - ESOPHAGUS BIOPSY Procedures: GROSS AND MICRO LEVEL 4 Comments: [id number]
[2023-02-28 09:23] VITALS: BP 102/66; PULSE 63; RESP 18; TEMP 36.3; O2SAT 94
[2023-02-28 10:00] VITALS: BP 115/78; PULSE 58; RESP 16; TEMP 36.1; O2SAT 99
--- NOTE | 2023-02-28 11:44 | W.ANESPOSTOP ---
Postoperative Evaluation Date, Time and Location Date Performed: 02/28/23 Time Performed: 09:30 Patient Location: Day Surgery Unit Vital Signs Most Recent Imported Vital Signs: Most Recent Vital Signs Temp Pulse Resp BP Pulse Ox 36.1 C L 58 L 16 115/78 99 02/28/23 10:00 02/28/23 10:00 02/28/23 10:00 02/28/23 10:00 02/28/23 10:00 Pain Score Most Recent Pain Score: Most Recent Pain Score Pain Level 0 02/28/23 10:00 Assessment Mental Status: Awake (Alert & Oriented to Patient Baseline) Airway and Respiratory Function: Patent airway with normal (patient baseline) respiratory exam Cardiovascular Function: Hemodynamically Stable Hydration Status: Adequately Hydrated Nausea & Vomiting: No Nausea or Vomiting Pain: Pt. Denies Any Pain Peripheral Nerve Block: Patient did not receive a nerve block
== END 2023-02-28 10:21 | disposition home or self-care (01) ==
LOC: SUR 07:51
PROVIDERS: PCP Family Medicine; Visit Provider Surgery
PROC: 0DJ68ZZ Inspection of Stomach, Via Natural or Artificial Opening Endoscopic (ICD-10-PCS; CPT 43235; principal; 2023-02-28 09:15)
DX: K21.9 Gastro-esophageal reflux disease without esophagitis (principal); Z87.19 Personal history of other diseases of the digestive system; K31.7 Polyp of stomach and duodenum; K44.9 Diaphragmatic hernia without obstruction or gangrene
CPT/HCPCS: 43239; 88305; J2001; J2704

== ENCOUNTER 2023-03-27 14:49 | Outpatient (REF) | payer MEDICARE, SELFPAY ==
[2023-03-27 14:19] LABS: HCT 38.7 % (36.0-46.0); HGB 12.5 g/dL (11.2-15.7); MCH 29.8 pg (27.0-33.0); MCHC 32.3 % (32.0-36.0); MCV 92 fL (80-95); MPV 10.9 fL (8.0-11.0); Platelet Count 225 10^3/uL (130-400); RDW 13.4 % (11.7-14.6); RDW-SD 45.6 fL; WBC 4.33 10^3/uL (4.4-10.8)
[2023-03-27 14:28] LABS: ALT 28 U/L (14-59); AST 22 U/L (15-37); Albumin 3.4 g/dL (3.4-5.0); Alkaline Phosphatase 88 U/L (46-116); Anion Gap 6.4 mmol/L (3-11); BUN 16 mg/dL (7-18); Bilirubin, Total 0.4 mg/dL (0.2-1.0); CO2 29.6 mmol/L (21.0-32.0); CREATININE 1.1 mg/dL (0.55-1.02); Calcium 9.1 mg/dL (8.5-10.1); Calculated LDL 122 mg/dL (<100); Chloride 107 mmol/L (98-107); Cholesterol 211 mg/dL (<200); Estimated GFR 54.73 (mL/min/1.73m2); Glucose 106 mg/dL (74-106); HDL Cholesterol 69 mg/dL (40-60); Potassium 4.3 mmol/L (3.5-5.1); Sodium 143 mmol/L (136-145); Total Protein 6.2 g/dL (6.4-8.2); Triglyceride 101 mg/dL (<150)
[2023-03-27 16:04] LABS: Hemoglobin A1C 5.6 % (<5.7)
== END 2023-03-27 14:50 | disposition home or self-care (01) ==
LOC: NCHCN 14:49
PROVIDERS: PCP Family Medicine; Visit Provider Family Medicine
DX: I10 Essential (primary) hypertension (principal); R73.03 Prediabetes; Z00.00 Encounter for general adult medical examination without abnormal findings; E66.9 Obesity, unspecified
CPT/HCPCS: 80053; 80061; 85027; 83036

== ENCOUNTER → 2023-04-18 01:01 | Outpatient (CLI) | payer MEDICARE, SELFPAY ==
--- NOTE | 2023-04-18 | DI.MAMMO_ITS ---
Exam(s) MAMMO SCREENING EXAM: MAMMO SCREENING CLINICAL HISTORY: SCREENING MAMMO FOR BREAST CANCER Z12.39 PREVENTATIVE Z00.00 TECHNIQUE: Mammograms were interpreted according to the usual protocol including computer analysis w [employer] CAD system, tomosynthesis and C-view imaging. COMPARISON: [id number] FINDINGS: The breasts are composed of mainly fatty density , Breast Density category A. No suspicious masses or suspicious microcalcifications are seen. No skin thickening or abnormal axillary lymph nodes are seen. There has been no significant change from prior exams. IMPRESSION: BI-RADS Category 1, Negative mammogram Yearly screening mammography is recommended. Breast Density - Category A, fatty density. A negative radiographic report should not delay biopsy if a dominant or clinically suspicious mass is present. Up to ten percent of cancers are not identified on mammography. A negative report may reinforce clinical impression. Adenosis and dense breasts may obscure an underlying neoplasm. False positive reports average 6 to 10%. Patient will receive a letter notifying them of these results.
== END ==
PROVIDERS: PCP Family Medicine; Visit Provider Family Medicine
DX: Z12.31 Encounter for screening mammogram for malignant neoplasm of breast (principal)
CPT/HCPCS: 77063; 77067

== ENCOUNTER 2024-03-27 13:16 | Outpatient (REF) | payer MEDICARE, SELFPAY ==
[2024-03-27 15:00] LABS: HGB 14.2 g/dL (11.2-15.7); MCH 30.5 pg (27.0-33.0); MCV 93 fL (80-95); MPV 11.9 fL (8.0-11.0); Platelet Count 200 10^3/uL (130-400); RBC 4.65 10^6/uL (3.93-5.22); RDW 13.3 % (11.7-14.6); RDW-SD 45.5 fL; WBC 4.68 10^3/uL (4.4-10.8)
[2024-03-27 15:40] LABS: ALT 33 U/L (14-59); AST 18 U/L (15-37); Albumin 3.6 g/dL (3.4-5.0); Alkaline Phosphatase 92 U/L (46-116); BUN 20 mg/dL (7-18); Bilirubin, Total 0.46 mg/dL (0.2-1.0); CREATININE 1.1 mg/dL (0.55-1.02); Calcium 9.8 mg/dL (8.5-10.1); Calculated LDL 115 mg/dL (<100); Chloride 105 mmol/L (98-107); Cholesterol 200 mg/dL (<200); Estimated GFR 54.39 (mL/min/1.73m2); Glucose 106 mg/dL (74-106); HDL Cholesterol 73 mg/dL (40-60); Potassium 4.8 mmol/L (3.5-5.1); Sodium 143 mmol/L (136-145); Total Protein 6.5 g/dL (6.4-8.2); Triglyceride 64 mg/dL (<150); Vitamin D 25 Total 62.7 ng/mL (30-100)
== END 2024-03-27 13:17 | disposition home or self-care (01) ==
LOC: NCHCN 13:16
PROVIDERS: PCP Family Medicine; Visit Provider Family Medicine
DX: Z00.00 Encounter for general adult medical examination without abnormal findings (principal)
CPT/HCPCS: 80053; 80061; 82306; 85027

== ENCOUNTER 2024-04-21 01:53 | Outpatient (CLI) | payer MEDICARE, SELFPAY ==
--- NOTE | 2024-04-21 | DI.MAMMO_ITS ---
Exam(s) MAMMO SCREENING EXAM: MAMMO SCREENING CLINICAL HISTORY: Screening, Z00.00-Adult health examination TECHNIQUE: Mammograms were interpreted according to the usual protocol including computer analysis w [employer] CAD system, tomosynthesis and C-view imaging. COMPARISON: 2014 through 2022 FINDINGS: The breasts are composed of mainly fatty density , Breast Density category A. No suspicious masses or suspicious microcalcifications are seen. No skin thickening or abnormal axillary lymph nodes are seen. There has been no significant change from prior exams. IMPRESSION: BI-RADS Category 1, Negative mammogram Yearly screening mammography is recommended. Breast Density - Category A, fatty density. A negative radiographic report should not delay biopsy if a dominant or clinically suspicious mass is present. Up to ten percent of cancers are not identified on mammography. A negative report may reinforce clinical impression. Adenosis and dense breasts may obscure an underlying neoplasm. False positive reports average 6 to 10%. Patient will receive a letter notifying them of these results.
== END 2024-04-21 02:13 ==
LOC: DI 01:55
PROVIDERS: PCP Family Medicine; Visit Provider Family Medicine
DX: Z12.31 Encounter for screening mammogram for malignant neoplasm of breast (principal)
CPT/HCPCS: 77063; 77067

== ENCOUNTER 2024-06-17 15:25 | Outpatient (CLI) | payer MEDICARE, SELFPAY ==
--- NOTE | 2024-06-17 13:00 | DI.RAD_ITS ---
Exam(s) XR SHOULDER RT COMPLETE 2+V EXAM: XR SHOULDER RT COMPLETE 2+V CLINICAL HISTORY: evaluate shoulder. TECHNIQUE: 2D digital imaging was performed of the right shoulder. Two images were obtained. Axill teresa and Grashey views were obtained. COMPARISON: No exams were available for comparison FINDINGS: BONES: No acute fracture is present. No bony destructive lesion is seen. JOINTS: No dislocation present. The glenohumeral joint is well maintained. Mild arthrosis of the acr omioclavicular joint is noted. There is mild spurring seen at the greater tuberosity. SOFT TISSUE: Normal. IMPRESSION: Mild arthrosis of the right shoulder. DATA REPOSITORY: RADIATION DOSE DELIVERED:
== END 2024-06-17 15:26 | disposition home or self-care (01) ==
LOC: DIORS 15:26
PROVIDERS: PCP Family Medicine; Referring Provider Family Medicine; Visit Provider Student in an Organized Health Care Education/Training Program
DX: M25.511 Pain in right shoulder (principal)
CPT/HCPCS: 73030

== ENCOUNTER 2024-07-04 01:04 | Outpatient (CLI) | payer MEDICARE, SELFPAY ==
--- NOTE | 2024-07-04 07:00 | DI.MRI_ITS ---
Exam(s) MR UPPER JOINT RT WO EXAM: MR UPPER JOINT RT WO CLINICAL HISTORY: R SHOULDER PAIN,INJURY RT ROTATOR CUFF,TENDINOPATHY,S46.001A,M67.921. TECHNIQUE: Multiplanar multisequence MRI was performed. COMPARISON: Plain films 17 June 2024 FINDINGS: BONES: There is no fracture or contusion pattern. Spurring and degenerative changes at the greater and lesser trochanter osseous. JOINTS:The acromioclavicular joint shows moderate inferior spurring and impingement on distal suprasp inatus muscle.. The glenohumeral joint shows a small amount of fluid. TENDONS: Supraspinatus: Severe thickening and edema. Focal tear distally. Infraspinatus: Unremarkable. Subscapularis: Unremarkable. Teres [place]: Unremarkable. Biceps and [place]: Edema proximally. MUSCLES: Unremarkable. GLENOID LABRUM: High signal in superior labrum could indicate labral tear. SOFT TISSUES: Unremarkable. OTHER: Subacromial and subdeltoid bursae shows minimal fluid. There is a small amount of fluid in t he subcoracoid bursa. IMPRESSION: Degenerative changes of the AC joint with inferior impingement. Severe tendinosis of the supraspinatus tendon with distal focal tear. Edema without visible tear in the proximal long head of the biceps tendon. High signal in superior labrum may represent a labral tear. DATA REPOSITORY:
== END 2024-07-04 01:24 ==
LOC: DI 01:05
PROVIDERS: PCP Family Medicine; Visit Provider Student in an Organized Health Care Education/Training Program
DX: S46.001A Unspecified injury of muscle(s) and tendon(s) of the rotator cuff of right shoulder, initial encounter (principal); M75.111 Incomplete rotator cuff tear or rupture of right shoulder, not specified as traumatic; X58.XXXD Exposure to other specified factors, subsequent encounter
CPT/HCPCS: 73221

== ENCOUNTER → 2024-07-08 14:52 | Outpatient (BNVA) | payer MEDICARE, SELFPAY | PROVIDERS: PCP Family Medicine; Referring Provider Family Medicine; Visit Provider Student in an Organized Health Care Education/Training Program | DX: S46.001D Unspecified injury of muscle(s) and tendon(s) of the rotator cuff of right shoulder, subsequent encounter (principal); X58.XXXD Exposure to other specified factors, subsequent encounter; M67.921 Unspecified disorder of synovium and tendon, right upper arm | CPT/HCPCS: 99213 ==

== ENCOUNTER → 2024-09-09 13:41 | Outpatient (BNVA) | payer MEDICARE, SELFPAY | PROVIDERS: PCP Family Medicine; Referring Provider Family Medicine; Visit Provider Student in an Organized Health Care Education/Training Program | DX: M67.921 Unspecified disorder of synovium and tendon, right upper arm (principal); S46.011D Strain of muscle(s) and tendon(s) of the rotator cuff of right shoulder, subsequent encounter; S46.221D Laceration of muscle, fascia and tendon of other parts of biceps, right arm, subsequent encounter; S43.431D Superior glenoid labrum lesion of right shoulder, subsequent encounter; X58.XXXD Exposure to other specified factors, subsequent encounter | CPT/HCPCS: 99214 ==

== ENCOUNTER 2024-09-30 10:21 | Outpatient (REF) | payer MEDICARE, SELFPAY ==
[2024-09-30 16:03] LABS: Anion Gap 3.8 mmol/L (3-11); BUN 23 mg/dL (7-18); CO2 31.2 mmol/L (21.0-32.0); CREATININE 1.2 mg/dL (0.55-1.02); Calcium 9.6 mg/dL (8.5-10.1); Chloride 109 mmol/L (98-107); Glucose 97 mg/dL (74-106); Potassium 4.6 mmol/L (3.5-5.1); Sodium 144 mmol/L (136-145)
[2024-09-30 16:12] LABS: Hemoglobin A1C 5.6 % (<5.7)
== END 2024-09-30 10:22 | disposition home or self-care (01) ==
LOC: NCHCN 10:21
PROVIDERS: PCP Family Medicine; Visit Provider Family Medicine
DX: R73.03 Prediabetes (principal); I10 Essential (primary) hypertension
CPT/HCPCS: 80048; 83036

== ENCOUNTER → 2024-12-10 12:52 | Outpatient (BNVA) | payer MEDICARE, SELFPAY | PROVIDERS: PCP Family Medicine; Referring Provider Family Medicine; Visit Provider Student in an Organized Health Care Education/Training Program | DX: M67.921 Unspecified disorder of synovium and tendon, right upper arm (principal); M75.101 Unspecified rotator cuff tear or rupture of right shoulder, not specified as traumatic; I10 Essential (primary) hypertension | CPT/HCPCS: 99214 ==

== ENCOUNTER 2025-01-09 09:58 | Day surgery (SDC) | payer MEDICARE, SELFPAY ==
[2025-01-09] VITALS (49 sets, daily range): BP systolic 79–182; BP diastolic 38–85; PULSE 55–72; RESP 11–24; TEMP 36–37; O2SAT 93–99; BMI 36.6
--- NOTE | 2025-01-09 07:12 | PDOC.DSDIS_ITS ---
Date of service: 01/09/25 Discharge Plan Disposition Patient Disposition: Home Condition: Stable Discharge Details Attending Provider: Parvez Feng Primary Care Provider: Melanie Carrington Home Meds and New Rx's Prescriptions: New tramadol 50 mg tablet 50 mg PO Q8H PRN (Reason: severe pain) Qty: 12 0RF Continued fluticasone propionate 16 GM spray,suspension 50 mcg NS PRN citalopram 20 mg tablet 30 mg PO DAILY omeprazole 20 mg capsule,delayed release(DR/EC) See Rx Instructions .ROUTE .COMPLEX Qty: 90 3RF Dose Instruction: TAKE ONE CAPSULE BY MOUTH EVERY DAY AT BEDTIME Rx Instructions: TAKE ONE CAPSULE BY MOUTH EVERY DAY AT BEDTIME multivitamin [Once Daily] 1 EACH tablet 1 ea PO DAILY ibuprofen 200 mg tablet 400 mg PO DIRECTED PRN Discharge Instructions Additional Instructions: Surgery: Right shoulder arthroscopy with extensive debridement (removal of loose bodies and chondroplasty), biceps tenodesis, subacromial decompression, distal clavicle excision, and rotator cuff repair (supraspinatus) 01/09/25; Moderately significant glenohumeral chondromalacia Activity: For 6 weeks, you should keep your arm at your side in a neutral position at all times except for physical therapy. Do not try to lift or raise your arm using your own muscles. You should use the sling whenever you are out of the house. At home it is best to remove the sling and rest the arm on a pillow at your side or support the operative side with your other hand. You may allow the arm to dangle at your side. A physical therapy prescription will be sent electronically to begin in about 3 weeks. Standard protocol. Prescriptions: Continue home ibuprofen 200 mg as needed for moderate pain Tramadol 50 mg take 1 every 8 hours as needed for severe pain You may use [id number] Tylenol (acetaminophen) as needed for mild pain. These pain medications may be taken all at once or in different combinations as needed. Also, recommend Colace (docusate) as a stool softener as surgery and pain medicine cause constipation. You may try [id number] diphenhydramine (Benadryl) 25-50 mg nightly as a s leep aid Dressings: Remove shoulder bandage after 3 days. Leave the sticky Steri-Strips in place until they fall off or remove them after you shower. Cover the incisions with Band-Aids or leave them open to air. You may shower after 5 days. Follow-up: 10-[address] Feng You may take off the leg compression stockings this evening at home. You may also leave them on a few days longer if you have a history of leg swelling or edema. Let us know right away if you develop any redness, drainage, fevers, chest pain, or trouble breathing. Do not drink alcohol or drive for at least 24 hours after anesthesia. Please call the office during business hours with any questions or concerns. Discharge Orders Discharge Orders: Discharge Order (Routine); Ordered 01/09/25 Ordered By: Angela Bush DS: Diagnosis Discharge Diagnosis (1) Right rotator cuff tear: Status: Acute (2) Tendinopathy of right biceps tendon: Status: Acute (3) Arthritis of right glenohumeral joint: Status: Acute (4) Arthritis of right acromioclavicular joint: Status: Acute
[2025-01-09] MEDS: Lactated Ringers 1,000 ML 30 ML IV ×2 (11:08→15:44)
--- NOTE | 2025-01-09 11:41 | W.PM.OP ---
Operative Note Operative Note PRE-OP DIAGNOSIS: Right: 1. Rotator cuff tear 2. LHB tendinopathy 3. Bursitis 4. ACJ arthritis POST-OP DIAGNOSIS: same PROCEDURE: Right: 1. Rotator cuff repair, CPT# 73764. This involved repair of the supraspinatus using anchors and sutures to reattach the rotator cuff back to the footprint of the greater tuberosity. 2. Arthroscopic biceps tenodesis, CPT# 86886. This involved arthroscopically suturing and reattaching the long head of the biceps tendon to the proximal humerus at the superior margin of the bicipital groove with a screw at the correct tension. 3. Extensive debridement, CPT# 82309. This involved using arthroscopic hand instruments, power instruments, and radiofrequency instruments to release the long head of the biceps tendon and debride areas of labral tearing, synovitis, chondromalacia about the glenoid and humeral head, removing multiple chondral loose bodies working within the glenohumeral joint anteriorly, superiorly and posteriorly. 4. Subacromial decompression with partial acromioplasty, CPT# 84025. This involved using arthroscopic power instruments and a radiofrequency wand to complete a bursectomy and smooth the undersurface of the acromion. 5. Arthroscopic distal clavicle excision, CPT# 60723. This involved arthroscopically exposing the underside of the acromioclavicular joint, smoothing out bone spurs, and removing a few millimeters of distal clavicle and acromion, especially the undersurface, so there was no bone left engaging the acromion or the bursal medial rotator cuff. The operations manager assistant was medically required in order to help assist in techniques above, which require positioning the arm, holding the arthroscope, and manipulating multiple instruments and sutures at the same time. This cannot be done without the help of an experienced operations manager assistant. SURGEON: Parvez Feng LIVING COACH: Angela Bush ANESTHESIA TYPE: Local By Surgeon, General LMA/ETT and Primary Nerve Block Refer to Anesthesia Record ESTIMATED BLOOD LOSS: 10 PATHOLOGY: none sent COMPLICATIONS: None Patient was transported to: PACU Patient's condition: stable Implants: Arthrex: 5.5mm SwiveLocks x 1 Indications: The patient was diagnosed with the above conditions and appropriately indicated for surgical intervention. Please see complete medical record for details. Findings: Exam under anesthesia: Essentially full range of motion, no instability. Possible mild limitation to terminal external rotation. Glenohumeral joint: Significant synovitis and partial undersurface rotator cuff and biceps tearing limiting arthroscopic inspection. There were also multiple chondral loose bodies floating around the glenohumeral joint. There was high-grade focal cartilage loss and moderate more diffuse cartilage loss of the central and superior glenoid and humeral head. There is partial tearing subscapularis anteriorly laterally to centrally. Subacromial space: Significant bursitis. Obvious undersurface acromial bone spurring and inferiorly hanging impinging acromion near the AC joint as well as hypertrophic AC joint arthritis. Softening and thinning laterally anterior supraspinatus with otherwise significant thickening diffuse tendon degeneration, but rather monet and attached to the greater tuberosity anteriorly and partially to this defect. Infraspinatus intact. Procedure Description: In the operating room, general anesthesia was induced. Bilateral shoulders were examined. The patient was positioned in the beachchair position. All bony prominences were well-padded. Preoperative antibiotics were administered. The shoulder was prepped and draped in the usual sterile fashion. The correct patient, procedure, and side of the procedure were all verified prior to incision. Starting through the posterior portal a standard complete diagnostic arthroscopy was performed of the glenohumeral joint including inspection of the long head of the biceps, anterior and superior labrum, subscapularis tendon, supraspinatus and infraspinatus tendons, and axillary recess. The glenoid and humeral head cartilage as well as the posterior labrum were inspected from an anterior viewing portal. Significant findings and interventions noted above. The challenging visualization of significant synovitis and partial tearing of structures about the glenohumeral joint required more time and more careful approach. The numerous loose bodies were vacuumed and removed out with the mechanical shaver and the cartilage was trimmed light chondroplasty to more stable margin on the glenoid and humeral head. The anterior superior and posterior labrum was then debrided of significant partial tearing. The superior capsule was attempted be protected while debriding articular sided tearing as well as identifying the potential area of supraspinatus high-grade tearing. The biceps was at least 50% torn near the humeral head still attached to the superior labrum and trimmed of fraying loose strands of tearing to better evaluate and separate from the supraspinatus for repair. The supraspinatus did not probe full-thickness from inside the joint so the camera was then redirected to the subacromial space to better evaluate. From the Rupa portal, arthroscope was directed into the subacromial space. A lateral 50 yard line lateral portal was created and Carol cannula inserted. A combination of power instruments and a radiofrequency ablator were used to debride bursitis anteriorly, posteriorly, and laterally as well as expose and smooth bone spurring on the undersurface of the acromion. The coracoacromial ligament was partially released. The bursectomy was completed viewing laterally and working from posteriorly and the rotator cuff was thoroughly inspected with findings noted above. The anterior portal was redirected towards the undersurface of the AC joint. A shaver and electrocautery device were used to clear soft tissue from the undersurface of the AC joint. The distalmost few mm of the distal clavicle and also medial and undersurface acromion was then removed and smoothed. Care was taken to ensure that proper amount of bone was removed and there was no engaging bone left behind especially superiorly. The elevators and probes were used to localize the area of bursal lateral supraspinatus thinning and thickening degeneration tearing. It was elevated from lateral to preserve tendon length and then the minimal articular remnant was released to reenter the glenohumeral joint. The arthroscope was directed back into the glenohumeral joint and the biceps was then secured in the loop and tack method with a suture tape FiberLink around and then through the tendon before amputating it from the superior labrum. The suture was then withdrawn through the full-thickness rotator cuff tear into the subacromial space after aligning the biceps and setting the tension at the superior aspect of the bicipital groove. The scorpion suture passer was used to place a widely spaced FiberTape inverted horizontal mattress suture encompassing the supraspinatus tear and closing the defect from anterior to posterior as well that had been created on the exposure. The biceps tenodesis repair suture and the supraspinatus repair sutures were then secured to a single lateral central 5.5 mm SwiveLock anchor with appropriate tension and good stability and closure of the repair. The shoulder was drained of arthroscopic fluid. All portal sites were copiously irrigated. These incisions were closed using 3-0 Monocryl in a buried fashion and then covered with Mastisol, Steri-Strips, Xeroform, dry gauze, and ABDs. The dressings were covered and secured with Medipore tape. The operative extremity was placed into a sling for immobilization. The patient awoke from anesthesia without complication and was transferred to the recovery room in a stable condition. Date of Procedure: 01/09/25
--- NOTE | 2025-01-09 11:53 | ANES.PREOP_ITS ---
General Info Date of Service Date Performed: 01/09/25 Height: 5 ft 2 in Weight: 90.9 kg Body Mass Index (BMI): 36.6 Surgical Procedure: Operation Date: 01/09/25 11:25 Proposed Procedure Side Surgeon p Shoulder Rotator Cuff Arthroscopic w/Extensive Debridement, Biceps Tenodesis, Subacromial Decompression, Distal Clavicle Excision Right Parvez Feng MD Actual Procedure Side Surgeon p Shoulder Rotator Cuff Arthroscopic w/Extensive Debridement, Biceps Tenodesis, Subacromial Decompression, Distal Clavicle Excision Right Parvez Feng MD Pre-Op Diagnosis Post-Op Diagnosis (1) Tendinopathy of right biceps tendon: (2) Right rotator cuff tear Meds Allergies and Home Medications Allergies Allergy/AdvReac Type Severity Reaction Status Date / Time amoxicillin Allergy Intermediate ears Verified 01/09/25 10:14 closed up and trouble breathing codeine AdvReac Intermediate Migraine Verified 01/09/25 10:14 Home Medication ?Medication ?Instructions ?Recorded fluticasone propionate 50 50 mcg NS PRN 06/14/16 mcg/actuation nasal spray,suspension multivitamin (Once Daily tablet) 1 ea PO DAILY 09/27/16 citalopram 20 mg tablet 30 mg PO DAILY 10/03/22 ibuprofen 200 mg tablet 400 mg PO DIRECTED PRN 02/20/23 omeprazole 20 mg capsule,delayed See Rx Instructions .Route 04/14/23 release .COMPLEX #90 caps tramadol 50 mg tablet 50 mg PO Q8H PRN severe pain #12 01/09/25 tabs Current Visit Medications: Current Medications Generic Name Dose Route Start Last Admin Trade Name Freq PRN Reason Stop Dose Admin Acetaminophen 1,000 mg 01/09/25 07:14 Acetaminophen 500 Mg Tab PO 02/08/25 07:13 Q6H PRN PRN Ringer's Solution 1,000 mls @ 30 mls/hr 01/09/25 06:00 01/09/25 11:08 IV 01/09/25 23:59 30 mls/hr INFUSION KASSIDY Administration Cefazolin Sodium/Dextrose 2 gm in 50 mls @ 100 mls/hr 01/09/25 06:00 Ancef Duplex IVPB 01/09/25 23:59 PREOP KASSIDY Tranexamic Acid/Sodium Chloride 1,000 mg in 100 mls @ 600 mls/hr 01/09/25 06:00 IVPB 01/09/25 23:59 PREOP KASSIDY IV Miscellaneous Supplies 1 each 01/09/25 06:00 Iv Access IV 01/09/25 23:59 DIRECTED KASSIDY Sodium Chloride 0 ml 01/09/25 06:00 Normal Saline Flush 10 Ml Syr IV 01/09/25 23:59 PRN PRN Sodium Chloride 0 ml 01/09/25 06:00 Normal Saline 10 Ml Vial IJ 01/09/25 23:59 DIRECTED PRN Sterile Water 0 ml 01/09/25 06:00 Water,Injection,Sterile 10 Ml Vial IJ 01/09/25 23:59 DIRECTED PRN Tramadol HCl 50 mg 01/09/25 07:14 Tramadol 50 Mg Tab PO 02/08/25 07:13 Q6H PRN PRN PFSH Active Problems Active Problems: Problem Status Onset Code Right rotator cuff tear Acute M75.101 Tendinopathy of right biceps tendon Acute M67.921 Bilateral sensorineural hearing loss Acute H90.3 Stress due to illness of family member Acute Z63.79 ABIGAIL (obstructive sleep apnea) Chronic G47.33 Prediabetes Acute R73.03 Hypertension Chronic I10 Medical History Medical History Barretts esophagus Obesity IBS (irritable bowel syndrome) Hiatal hernia Dysthymia Seborrheic keratosis GERD (gastroesophageal reflux disease) History of smoking Medical History Comments:: PONV, 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 Surgical History Surgical History Hx of bariatric surgery 02/2021 Hx of colonoscopy Hx of dilation and curettage History of fasciotomy L palm History of esophagogastroduodenoscopy (EGD) (~02/28/23) 02/2023, 03/2020 @ [facility] Trigger finger, left ring finger S/P Release: 01/03/2023 S/P laparoscopic sleeve gastrectomy section 1982 Tobacco Smoking/Tobacco Use Status: Former Tobacco Use Passive smoking exposure: No Second hand exposure: No Alcohol Alcohol Intake: current Alcohol intake frequency: a few times a week Alcohol type: hard liquor Substance Use Substance use: Rarely Substance use type: former substance user Counseling provided: none Details: CBD gummies Vital Signs and Lab Results Vital Signs Most Recent Vital Signs in EMR: Most Recent Vital Signs Temp Pulse Resp BP Pulse Ox 37 C 56 L 18 150/81 H 99 05/09/25 10:05 01/09/25 10:05 01/09/25 10:05 01/09/25 10:05 01/09/25 10:05 Lab Results Blood Type / Crossmatch: 2 No Data to Display Complete Blood Count: 2 No Data to Display Complete Metabolic Panel: 2 No Data to Display Liver Function Panel: 2 No Data to Display Coagulation Panel: 2 No Data to Display Cardiac Panel: 2 No Data to Display Arterial Blood Gas: 2 No Data to Display Venous Blood Gas: 2 No Data to Display Pancreas Panel: 2 No Data to Display Thyroid Panel: 2 No Data to Display Infectious Disease: 2 No Data to Display Blood Cultures: 2 No Data to Display Toxicology Panel: 2 No Data to Display Anesthesia Assessment and Plan Anesthesia History Personal History: PONV Family History: No Family History of Anesthesia Complications Exercise Tolerance Exercise Tolerance: Metabolic Equivalents>4 Pertinent Negatives Pertinent Negatives: No Major Cardiovascular Symptoms or Complaints, No Major Pulmonary Symptoms or Complaints and No History of CVA/TIA Cardiac & Pulmonary Exam Cardiac Exam: Normal S1/S2 Heart Sounds Pulmonary Exam: Clear Bilateral Breath Sounds Implantable Cardiac Device Does patient have a Pacemaker or an ICD?: No Airway Exam Known Difficult Airway: No Mallampati Class: 2 Mouth Opening: Normal (> 3cm) Thyromental Distance: Greater than 3 cm Neck Range of Motion: Full ROM Neck Circumference: Normal Teeth Condition: Normal Dentition and Generalized Poor Dentition Tooth Numberin 1. Missing ASA Classification ASA Score: ASA 2 Emergency Case?: No NPO Status NPO Status: NPO Clears >2 hours, Solids >8 hours Anesthesia Plan Resuscitation Status: Full Code Anesthesia Technique: General Anesthesia Airway Planned: Endotracheal Tube Pain Management: Surgeon and patient request nerve block Monitors Used: Standard Monitors and SedLine
[2025-01-09] MEDS: ceFAZolin 2 GM/50 ML BAG IVPB (12:37)
[2025-01-09] MEDS: TRANEXAMIC ACID/SOD. CHL. 1,000 MG/100 ML BAG 600 MG IVPB (13:00)
--- NOTE | 2025-01-09 13:08 | W.ANESNERVE ---
Nerve Block Single Injection Procedure Date and Time Date Performed: 01/09/25 Procedure Start: 12:14 Location Where Procedure Performed Procedure Location: Day Surgery Unit Reason Performed: Postoperative Analgesia Requesting Provider: Parvez Feng Timeout Performed Timeout Performed: Yes Monitoring Used ECG, Blood Pressure and SpO2 Sterility Sterility: Hand Hygiene, Surgical Cap, Sterile Gloves, Eye Protection and Chlorhexidine Sedation Given During Procedure Sedation Given (Indicate Dose Given): Versed IV Dose:: 2 mg Patient Mental Status Patient Mental Status: Sedate with meaningful communication Nerve Block 1st Nerve Block: Laterality: Right Block Type: Interscalene Ultrasound Image Saved?: Yes Needle / Catheter Used: 80mm SonoPlex II Local Anesthetic Bolus (Indicate Dose Given): Lidocaine used for local infiltration of skin, Bupivacaine 0.25% Dose:: 10 ml and Exparel Dose:: 10 ml Additives (Indicate Dose Given): None Ultrasound: Sterile probe cover and gel used Nerve Stimulator: Supplement to Ultrasound use and No twitch or parasthesia noted < 0.5 mA Paresthesia: None Procedure Tolerated: No Complications and Patient tolerated well Procedure Outcome: Successful Performed By: Catracho Khan Supervised By: Stefani Garces
[2025-01-09] MEDS: Bupivacaine 0.25% Pres-Free W/EPI 30 ML VIAL (13:51)
[2025-01-09] MEDS: EPINEPHrine 10 MG/10 ML ML (14:36)
[2025-01-09] MEDS: ePHEDrine 25 MG/5 ML Syringe IVP (15:16)
--- NOTE | 2025-01-09 16:57 | W.ANESPOSTOP ---
Postoperative Evaluation Date, Time and Location Date Performed: 01/09/25 Time Performed: 14:41 Patient Location: Day Surgery Unit Vital Signs Most Recent Imported Vital Signs: Most Recent Vital Signs Temp Pulse Resp BP Pulse Ox 36.6 C 70 16 112/55 L 97 01/09/25 16:25 01/09/25 16:25 01/09/25 16:25 01/09/25 16:25 01/09/25 16:25 Pain Score Most Recent Pain Score: Most Recent Pain Score Pain Level 0 01/09/25 16:25 Assessment Mental Status: Awake (Alert & Oriented to Patient Baseline) Airway and Respiratory Function: Patent airway with normal (patient baseline) respiratory exam Cardiovascular Function: Hemodynamically Stable Hydration Status: Adequately Hydrated Nausea & Vomiting: No Nausea or Vomiting Pain: Pain is tolerable per patient Peripheral Nerve Block: Regional nerve block not resolved at time of post operative discharge
== END 2025-01-09 17:50 | disposition home or self-care (01) ==
PROVIDERS: PCP Family Medicine; Visit Provider Student in an Organized Health Care Education/Training Program
PROC: (CPT 29827; principal; 2025-01-09 11:15)
DX: M75.101 Unspecified rotator cuff tear or rupture of right shoulder, not specified as traumatic (principal); M67.921 Unspecified disorder of synovium and tendon, right upper arm; M19.011 Primary osteoarthritis, right shoulder; M75.51 Bursitis of right shoulder; G89.18 Other acute postprocedural pain
CPT/HCPCS: 29827; 29828; 29823; 29826; 29824; C1713; 64415; J0131; J0665; J0666; J0690; J1100; J1805; J1885; J1920; J2003; J2250; J2371; J2405; J2469; J2704; J3010

== ENCOUNTER 2025-01-20 15:20 | Outpatient (CLI) | payer MEDICARE, SELFPAY ==
--- NOTE | 2025-01-20 15:39 | DI.US_ITS ---
Exam(s) US EXTREMITY VENOUS BI EXAM: US EXTREMITY VENOUS BI CLINICAL HISTORY: M79.661 Pain RT LWR leg, ? DVT, RT calf pain. TECHNIQUE: Bilateral lower extremity venous ultrasound performed using grayscale, color-flow, and sp ectral Doppler analysis. COMPARISON: No exams were available for comparison FINDINGS: The right common femoral, femoral and popliteal veins demonstrate normal compressibility, augmentatio n, and color Doppler. The posterior tibial and peroneal veins are patent. The saphenofemoral junctio n is unremarkable. There is no evidence of a Dupont's cyst. The soft tissues are unremarkable. The left common femoral, femoral and popliteal veins demonstrate normal compressibility, augmentation , and color Doppler. The posterior tibial and peroneal veins are patent. The saphenofemoral junction is unremarkable. There is no evidence of a Dupont's cyst. The soft tissues are unremarkable. IMPRESSION: 1. No evidence of a right lower extremity DVT. 2. No evidence of a left lower extremity DVT. DATA REPOSITORY:
--- NOTE | 2025-01-20 16:36 | DI.VRAD_ITS ---
PROCEDURE INFORMATION: Exam: US Duplex Lower Extremity Veins, Bilateral Exam date and time: 01/20/2025 4:00 PM Age: 70 years old Clinical indication: Other: Bilat leg pain TECHNIQUE: Imaging protocol: Real-time duplex ultrasound of the bilateral extremities with 2-D [place] scale, color Doppler flow and spectral waveform analysis including responses to compression and other maneuvers (when performed) with image documentation. Complete exam focused on the lower extremity veins. COMPARISON: No relevant prior studies available. FINDINGS: Right deep veins: The common femoral, femoral, proximal profunda femoral and popliteal veins are patent without thrombus. Normal Doppler waveforms. Normal compressibility and/or augmentation response. Left deep veins: The common femoral, femoral, proximal profunda femoral and popliteal veins are patent without thrombus. Normal Doppler waveforms. Normal compressibility and/or augmentation response. Superficial veins: Greater saphenous veins at the saphenofemoral junctions are patent bilaterally without thrombus. Soft tissues: Unremarkable. IMPRESSION: No evidence of deep vein thrombosis. Dictated and Authenticated by: Aleshia Doty MD. Orderin Jung Hannon MD
== END 2025-01-20 15:40 ==
LOC: DI 15:20
PROVIDERS: PCP Family Medicine; Visit Provider Student in an Organized Health Care Education/Training Program
DX: M79.661 Pain in right lower leg (principal); I82.409 Acute embolism and thrombosis of unspecified deep veins of unspecified lower extremity
CPT/HCPCS: 93970

== ENCOUNTER → 2025-01-21 09:50 | Outpatient (BNVA) | payer MEDICARE, SELFPAY | PROVIDERS: PCP Family Medicine; Referring Provider Family Medicine; Visit Provider Student in an Organized Health Care Education/Training Program | DX: M67.921 Unspecified disorder of synovium and tendon, right upper arm (principal); M75.101 Unspecified rotator cuff tear or rupture of right shoulder, not specified as traumatic; M25.561 Pain in right knee | CPT/HCPCS: 99024 ==

== ENCOUNTER 2025-02-04 10:33 | Outpatient (CLI) | payer MEDICARE, SELFPAY ==
--- NOTE | 2025-02-04 09:00 | DI.RAD_ITS ---
Exam(s) XR KNEE RT 3V AP,LAT,MARC EXAM: XR KNEE RT 3V AP,LAT,MARC CLINICAL HISTORY: RIGHT KNEE PAIN. TECHNIQUE: 2D digital imaging was performed of the right knee. Three views obtained. Merchant, AP an d lateral views were obtained. COMPARISON: No exams were available for comparison FINDINGS: BONES: No acute fracture is present. No bony destructive lesion is seen. JOINTS: There is marked narrowing of the patellofemoral joint with prominent osteophytes particularly laterally. The femoral tibial joint is well maintained. There is a small joint effusion. SOFT TISSUE: Normal. IMPRESSION: Marked osteoarthritis of the patellofemoral joint. DATA REPOSITORY: RADIATION DOSE DELIVERED:
== END 2025-02-04 10:34 | disposition home or self-care (01) ==
LOC: DIORS 10:33
PROVIDERS: PCP Family Medicine; Referring Provider Family Medicine; Visit Provider Student in an Organized Health Care Education/Training Program
DX: M25.561 Pain in right knee (principal); M17.11 Unilateral primary osteoarthritis, right knee
CPT/HCPCS: 99213; 20610; 73562; J1010

== ENCOUNTER → 2025-03-11 10:51 | Outpatient (BNVA) | payer MEDICARE, SELFPAY | PROVIDERS: PCP Family Medicine; Referring Provider Family Medicine; Visit Provider Student in an Organized Health Care Education/Training Program | DX: Z47.89 Encounter for other orthopedic aftercare (principal); M67.921 Unspecified disorder of synovium and tendon, right upper arm; M75.101 Unspecified rotator cuff tear or rupture of right shoulder, not specified as traumatic; M17.11 Unilateral primary osteoarthritis, right knee | CPT/HCPCS: 99213 ==

== ENCOUNTER 2025-03-20 17:52 | Outpatient (REF) | payer MEDICARE, SELFPAY | END 2025-03-20 17:53 | disposition home or self-care (01) | LOC: NCHCN 17:52 | PROVIDERS: PCP Family Medicine; Visit Provider Family Medicine | DX: N39.0 Urinary tract infection, site not specified (principal); R82.89 Other abnormal findings on cytological and histological examination of urine | CPT/HCPCS: 87086 ==

== ENCOUNTER 2025-04-06 16:50 | Outpatient (REF) | payer MEDICARE, SELFPAY ==
[2025-04-06 16:11] LABS: ALT 30 U/L (14-59); AST 22 U/L (15-37); Albumin 3.6 g/dL (3.4-5.0); Alkaline Phosphatase 98 U/L (46-116); Anion Gap 4.5 mmol/L (3-11); BUN 21 mg/dL (7-18); Bilirubin, Total 0.4 mg/dL (0.2-1.0); CO2 31.5 mmol/L (21.0-32.0); Calcium 9.5 mg/dL (8.5-10.1); Chloride 104 mmol/L (98-107); Estimated GFR 60.61 (mL/min/1.73m2); Glucose 104 mg/dL (74-106); Potassium 4.4 mmol/L (3.5-5.1); Sodium 140 mmol/L (136-145); Total Protein 6.7 g/dL (6.4-8.2)
[2025-04-06 16:27] LABS: Hemoglobin A1C 5.5 % (<5.7)
== END 2025-04-06 16:51 | disposition home or self-care (01) ==
LOC: NCHCN 16:50
PROVIDERS: PCP Family Medicine; Visit Provider Family Medicine
DX: R73.03 Prediabetes (principal)
CPT/HCPCS: 80053; 83036

== ENCOUNTER → 2025-04-13 10:12 | Outpatient (BNVA) | payer MEDICARE, SELFPAY | PROVIDERS: PCP Family Medicine; Referring Provider Family Medicine; Visit Provider Physician Assistant | DX: M17.11 Unilateral primary osteoarthritis, right knee (principal) | CPT/HCPCS: 99213 ==

== ENCOUNTER → 2025-05-13 10:00 | Outpatient (BNVA) | payer MEDICARE, SELFPAY | PROVIDERS: PCP Family Medicine; Referring Provider Family Medicine; Visit Provider Student in an Organized Health Care Education/Training Program | DX: Z47.89 Encounter for other orthopedic aftercare (principal); M67.921 Unspecified disorder of synovium and tendon, right upper arm; M75.101 Unspecified rotator cuff tear or rupture of right shoulder, not specified as traumatic; M17.11 Unilateral primary osteoarthritis, right knee | CPT/HCPCS: 99213 ==

== ENCOUNTER 2025-06-30 00:57 | Outpatient (CLI) | payer MEDICARE, SELFPAY ==
--- NOTE | 2025-06-30 | DI.MAMMO_ITS ---
Exam(s) MAMMO SCREENING EXAM: MAMMO SCREENING CLINICAL HISTORY: SCREENING,Z12.31. TECHNIQUE: Bilateral full field digital CC and MLO mammographic images were obtained with 3D tomosynthesis and utilizing computer aided detection (CAD). COMPARISON: Prior mammograms were reviewed. FINDINGS: There has been no significant change in the appearance and distribution of the fibroglandular tissue. There are no CAD designations. There are no new spiculated masses nor malignant appearing microcalcification groups. There is no significant architectural distortion nor skin thickening-retraction. Skin mole anterior left breast again noted IMPRESSION: No radiographic evidence of malignancy. BI-RADS Category 1 - Negative Breast Density - Category A - The breast are almost entirely fatty. Breast density Category C or D implies that the patient has dense breast tissue. Dense breast tissue can make it harder to find cancer on a mammogram. Dense breast tissue is also associated with an increased risk of breast cancer. This information about the result of the mammogram report was provided to the patient to raise their awareness. Use this report when you speak with the patient about their risks for breast cancer, which includes their family history. At that time, you may recommend additional screening tests (Ultrasound or MRI) as these tests may add significant information. A negative radiographic report should not delay biopsy if a dominant or clinically suspicious mass is present. Up to ten percent of cancers are not identified on mammography. A negative report may reinforce clinical impression. Adenosis and dense breasts may obscure an underlying neoplasm. False positive reports average 6 to 10%. Patient will receive a letter notifying them of these results.
== END 2025-06-30 01:17 ==
LOC: DI 00:57
PROVIDERS: PCP Family Medicine; Visit Provider Family Medicine
DX: Z12.31 Encounter for screening mammogram for malignant neoplasm of breast (principal); R92.323 Mammographic fibroglandular density, bilateral breasts
CPT/HCPCS: 77063; 77067